=== PATIENT | female | born 1990 | race Hispanic/Latino ===

== ENCOUNTER 2023-07-21 23:15 | Emergency (ER) | payer OTHER ==
[~2023-07-21] VITALS: Ht 160 cm; Wt 96.2 kg
[2023-07-21 23:17] VITALS: BP 121/74; PULSE 83; RESP 20
[2023-07-22] MEDS: IBUPROFEN 800 MG TAB PO ONE (01:03)
[2023-07-22] MEDS ORDERED: IBUP-2077 PO (01:42)
== END 2023-07-22 01:57 | disposition home or self-care (01) ==
LOC: EDH 23:15
DX: S20.212A Contusion of left front wall of thorax, initial encounter (principal); M54.50 Low back pain, unspecified; F41.9 Anxiety disorder, unspecified; F32.A Depression, unspecified; E66.9 Obesity, unspecified; V89.2XXA Person injured in unspecified motor-vehicle accident, traffic, initial encounter; Y93.I9 Activity, other involving external motion; Y92.488 Other paved roadways as the place of occurrence of the external cause; Y99.8 Other external cause status
CPT/HCPCS: 71045; 72100